=== PATIENT | male | born 1955 | race Two or more races ===

== ENCOUNTER 2022-10-21 22:53 | Emergency (ER) | payer MEDICARE, OTHER ==
[~2022-10-21] VITALS: Ht 167.6 cm; Wt 56.7 kg
[2022-10-21 23:58] LABS: APPEARANCE,URINE TURBID (CLEAR); BILIRUBIN,URINE NEGATIVE (NEGATIVE); BLOOD, URINE 3+ Ery/uL (NEGATIVE); COLOR,URINE RED (YELLOW); KETONES,URINE NEGATIVE (NEGATIVE); LEUKOCYTE ESTERASE ,URINE TRACE (NEGATIVE); NITRITE, URINE POSITIVE (NEGATIVE); PH,URINE 6.5 (5.0-8.0); PROTEIN,URINE 2+ mg/dl (NEGATIVE); UGLUCOSE NEGATIVE (NEGATIVE); UROBILINOGEN,URINE 0.2 EU/dL (0.2)
[2022-10-21 23:59] LABS: ADD URINE CULTURE YES; BACTERIA,URINE Few /HPF (None Seen); RBC,URINE TOO NUMEROUS TO COUN /HPF (0-2); SQUAMOUS EPITHELIAL CELL,UR Rare /HPF (None Seen)
[2022-10-22] MEDS ORDERED: CIPR500T5 PO (00:07)
[2022-10-22] MEDS ORDERED: CIPROFLOXACIN HCL 500 MG TABLET GT ONE (00:30)
[2022-10-22] MEDS ORDERED: CIPROFLOXACIN HCL 500 MG TABLET ONE (00:33)
[2022-10-22 11:39] VITALS: BP 125/79; TEMP 98.8; O2SAT 99
== END 2022-10-22 11:40 ==
LOC: ER 22:55
DX: N39.0 Urinary tract infection, site not specified (principal); R31.9 Hematuria, unspecified; I10 Essential (primary) hypertension; J44.9 Chronic obstructive pulmonary disease, unspecified; K21.9 Gastro-esophageal reflux disease without esophagitis; E11.9 Type 2 diabetes mellitus without complications; F41.9 Anxiety disorder, unspecified; F20.9 Schizophrenia, unspecified; Z88.0 Allergy status to penicillin
CPT/HCPCS: 31720; 81001; 87086-TC; 94002; 94002-TC; 94799-TC